=== PATIENT | male | born 1935 | race Two or more races ===

== ENCOUNTER 2024-06-10 07:25 | Day surgery (SDC) | payer MEDICARE, MEDICAID, SELFPAY ==
[2024-06-05 11:57] VITALS: BMI 29.4
[2024-06-10] VITALS (12 sets, daily range): BP systolic 125–149; BP diastolic 72–96; PULSE 60–66; RESP 12–21; TEMP 36.3–36.4; O2SAT 94–98; BMI 29.0
[2024-06-10] MEDS: fentaNYL CIT INJ 50 mCg/ML AMP 2ML (ASD USE ONLY) IV (09:30)
[2024-06-10] MEDS: MIDAZOLAM INJ 1 MG/ML VIAL 2 ML (ASD USE ONLY) 2 MG IV (09:30)
[2024-06-10] MEDS: DiphenhydrAMINE INJ 50 MG/ML VIAL 25 MG IV (09:30)
--- NOTE | 2024-06-10 10:54 | SUR.PHASEII ---
1025 Pt more awake and alert. Via [place] speaker-pt denies N/V, does state crampy. Pt repositioned for flatus release. Passing flatus, states feels better. Ines PO fluids. 1040 Pt assessment unchanged. No complaints. Abd softer. Amb with steady gait. Able to dress self. Pt req son to interpret. DC instructions given. Both state understanding. Pt meets dc criteria-to home.
== END 2024-06-10 10:40 | disposition home or self-care (01) ==
PROVIDERS: PCP Family Medicine; Referring Provider Specialist; Visit Provider Specialist
PROC: 0DBE8ZX Excision of Large Intestine, Via Natural or Artificial Opening Endoscopic, Diagnostic (ICD-10-PCS; CPT 45380; principal; 2024-06-10 08:30)
DX: Z12.11 Encounter for screening for malignant neoplasm of colon (principal); K51.00 Ulcerative (chronic) pancolitis without complications; D12.4 Benign neoplasm of descending colon; D12.5 Benign neoplasm of sigmoid colon; K63.89 Other specified diseases of intestine; K64.9 Unspecified hemorrhoids
CPT/HCPCS: 45385; 45380; A4649; J1200; J2250; J3010